=== PATIENT | female | born 1955 | race Caucasian/White ===

== ENCOUNTER 2016-12-27 16:21 | Emergency (ER) | payer OTHER ==
[2016-12-27 16:28] VITALS: BP 123/63
--- NOTE | 2016-12-27 19:37 | ED ---
Bite Injury/Animal - HPI Summary HPI Summary: Patient presents to the ED with CC of cat bite to the right toe. She states her cat bites the toe often (at least once a month), and often she will get infections. She has since kept Augmentin on hand at her home for when she gets bitten. However, today the claw penetrated lateral to the bit toe nail and now presenting with pain worse than she usually experiences. She is concerned over an infection. She took Tramadol for pain relief. She also irrigated the wound at home, as she normally does when she is bitten. Denies numbness or tingling. Endorses good blood flow and denies temperature or color change. Cat is with all shots. Denies fever, chills. - History of Current Complaint Chief Complaint: EDAnimalBite Stated Complaint: CAT BITE ON TOE Time Seen by Provider: 12/27/16 17:15 Hx Obtained From: Patient Hx Last Menstrual Period: . Onset of Injury: Happened hours ago - this am Type of Bite: Animal Hx of Bite: Unprovoked Has Animal Been Immunized?: Yes Severity Initially: Mild Severity Currently: Moderate Pain Intensity: 7 Pain Scale Used: 0-10 Numeric Character: Puncture Associated Signs And Symptoms: Positive: Erythema - slight erythema around the tip of the toe - Risk Factors Infection/Sepsis Risk Factors: Negative - Allergies/Home Medications Allergies/Adverse Reactions: Allergies Allergy/AdvReac Type Severity Reaction Status Date / Time Prochlorperazine Allergy Unknown See Comment Verified 12/27/16 16:24 [From Compazine] PMH/Surg Hx/FS Hx/Imm Hx Previously Healthy: Yes Endocrine/Hematology History: Reports: Hx Thyroid Disease Denies: Hx Anticoagulant Therapy, Hx Diabetes Cardiovascular History: Denies: Hx Congestive Heart Failure, Hx Deep Vein Thrombosis, Hx Hypertension , Hx Myocardial Infarction, Hx Pacemaker/ICD Respiratory History: Denies: Hx Asthma, Hx Chronic Obstructive Pulmonary Disease (COPD), Hx Lung Cancer, Hx Pneumonia, Hx Pulmonary Embolism GI History: Denies: Hx Gall Bladder Disease, Hx Gastrointestinal Bleed, Hx Ulcer, Hx Urosepsis History: Denies: Hx Dialysis, Hx Kidney Stones, Hx Renal Disease Sensory History: Denies: Hx Contacts or Glasses - CONTACTS, Hx Hearing Aid Opthamlomology History: Denies: Hx Contacts or Glasses - CONTACTS Neurological History: Reports: Hx Migraine - OCC Denies: Hx Dementia, Hx Seizures, Hx Transient Ischemic Attacks (TIA) Psychiatric History: Reports: Hx Depression Denies: Hx Panic Disorder - Surgical History Surgery Procedure, Year, and Place: 2 knee surgeries - meniscectomies 2010, 2011 [place]. hysterectomy 2008; 09/06/15 REPAIR [facility] Hx Anesthesia Reactions: No Infectious Disease History: No Infectious Disease History: Reports: Hx Shingles Denies: Hx Clostridium Difficile, Hx Hepatitis, Hx Human Immunodeficiency Virus (HIV), Hx of Known/Suspected MRSA, Hx Tuberculosis, Hx Known/Suspected VRE , Hx Known/Suspected VRSA, History Other Infectious Disease, Traveled Outside the [place] in Last 30 Days - Family History Known Family History: Positive: Cardiac Disease, Diabetes Negative: Hypertension - Social History Occupation: Employed Full-time Lives: With Family Alcohol Use: Occasionally Hx Substance Use: No Substance Use Type: Reports: None Hx Tobacco Use: No Smoking Status (MU): Never Smoked Tobacco Review of Systems Constitutional: Negative Eyes: Negative Cardiovascular: Negative Respiratory: Negative Musculoskeletal: Negative Positive: Other - small puncture wound to lateral border of right toe Neurological: Negative Psychological: Normal All Other Systems Reviewed And Are Negative: Yes Physical Exam Triage Information Reviewed: Yes Vital Signs On Initial Exam: Initial Vitals Temp Pulse Resp BP Pulse Ox 98.2 F 87 16 123/63 98 12/27/16 16:24 12/27/16 16:24 12/27/16 16:24 12/27/16 16:24 12/27/16 16:24 Vital Signs Reviewed: Yes Appearance: Positive: Well-Appearing, No Pain Distress Skin: Positive: Warm, Skin Color Reflects Adequate Perfusion, Other - small puncture wound to the lateral side of the right big toe Head/Face: Positive: Normal Head/Face Inspection Eyes: Positive: Normal, EOMI ENT: Positive: Hearing grossly normal Neck: Positive: Nontender, No Lymphadenopathy Respiratory/Lung Sounds: Positive: Clear to Auscultation Cardiovascular: Positive: Normal Musculoskeletal: Positive: Normal, Strength/ROM Intact Neurological: Positive: Normal Psychiatric: Positive: Normal Diagnostics - Vital Signs Vital Signs Temp Pulse Resp BP Pulse Ox 12/27/16 16:24 98.2 F 87 16 123/63 98 - Laboratory Lab Statement: Any lab studies that have been ordered have been reviewed, and results considered in the medical decision making process. Bite Injury Course/Dx - Course Course Of Treatment: Provider discussed risks for cat bite infections. No numbnes or tingling. Good blood flow. Slight erythema over lateral side of great toe. endorsed pain. Took Augmentin at home - 1 dose. no fever. no warmth around toe. Patient placed on Augmentin. Continue with abx for 10 days. Return precautions given. - Diagnoses Differential Diagnosis/HQI/PQRI: Positive: Cellulitis, Crush Injury, Laceration , Puncture Provider Diagnosis: Cat bite of foot Discharge - Discharge Plan Condition: Stable Disposition: HOME Prescriptions: Amoxicillin/Clavulanate TAB* [Augmentin TAB 875*] 875 mg PO BID #20 tab Referrals: Mary Thapa MD [Primary Care Provider] - Additional Instructions: Cat Bite: Augmentin for 10 days May take pain medication at home as needed for discomfort. Encouraged Ibuprofen 600mg three times daily with meals for pain. Return precautions and return to ED if symptoms worsen or fail to improve, notice worsening swelling, warmth or redness around the joint, develop fever, or pain is uncontrolled with OTC medications. Notes to patient from your provider: Protect the area. Rest the involved area, but not too long. You may need to be off your injury for some time to allow for healing, however excessive immobilization of joints can lead to stiffness and delay healing time. Early mobilization is encouraged if it is pain-free. Ice. Not directly on the skin. Cover with a towel. Apply ice no more than 30 minutes at a time
== END 2016-12-27 18:20 | disposition home or self-care (01) ==
LOC: ED 16:21
DX: S91.151A Open bite of right great toe without damage to nail, initial encounter (principal); W55.01XA Bitten by cat, initial encounter; Y93.9 Activity, unspecified; Y92.9 Unspecified place or not applicable; Y99.9 Unspecified external cause status
CPT/HCPCS: 99282

== ENCOUNTER 2018-09-26 15:02 | Emergency (ER) | payer OTHER ==
[2018-09-26 15:21] VITALS: BP 125/75
--- NOTE | 2018-09-26 15:38 | UC ---
Complaint Female HPI - HPI Summary HPI Summary: Has had burning urination and frequency for past 2 weeks medicated herself with cipro from home for 4-5 days, started to feel better so stopped med. started augmentin 2 days later for same symps and then added cirpo again. starting to feel a bit better but not totally. Also used one day monistat - although denies itch or vaginal symps - History Of Current Complaint Chief Complaint: UCGU Stated Complaint: URINARY COMPLAINT Time Seen by Provider: 09/26/18 15:21 Hx Obtained From: Patient Hx Last Menstrual Period: 2008/. ?: No Onset/Duration: Gradual Onset Timing: Constant Severity Initially: Mild Severity Currently: Mild Pain Intensity: 3 Character: Burning Aggravating Factor(s): Urination Associated Signs And Symptoms: Negative: Fever, Back Pain, Vaginal Bleeding/ Discharge, Nausea, Vomiting(# Of Episodes =) - Allergies/Home Medications Allergies/Adverse Reactions: Allergies Allergy/AdvReac Type Severity Reaction Status Date / Time prochlorperazine Allergy Intermediate Unknown Verified 09/26/18 15:22 [From Compazine] Reaction Details PMH/Surg Hx/FS Hx/Imm Hx Previously Healthy: Yes Endocrine History: Hypothyroidism Psychological History: Depression Other History Of: Negative For: HIV, Hepatitis B, Hepatitis C, Anticoagulant Therapy - Surgical History Surgical History: Yes Surgery Procedure, Year, and Place: 2 knee surgeries - meniscectomies 2010, 2011 [place]. hysterectomy 2008; 09/06/15 REPAIR [facility] - Family History Known Family History: Positive: Cardiac Disease, Diabetes Negative: Hypertension - Social History Occupation: Employed Full-time Lives: Alone Alcohol Use: Weekly Substance Use Type: None Smoking Status (MU): Never Smoked Tobacco - Immunization History Most Recent Influenza Vaccination: season Most Recent Tetanus Shot: 2010 Review of Systems Constitutional: Negative Respiratory: Negative Cardiovascular: Negative Gastrointestinal: Negative Genitourinary: Dysuria, Frequency Psychological: Negative Is Patient Immunocompromised?: No All Other Systems Reviewed And Are Negative: Yes Physical Exam Triage Information Reviewed: Yes Appearance: Well-Appearing, No Pain Distress, Well-Nourished Vital Signs: Initial Vital Signs Temp 97.8 F 09/26/18 15:18 Pulse 75 09/26/18 15:18 Resp 18 09/26/18 15:18 BP 125/75 09/26/18 15:18 Pulse Ox 99 09/26/18 15:18 Vital Signs Reviewed: Yes Respiratory Exam: Normal Cardiovascular Exam: Normal Abdominal Exam: Normal Neurological Exam: Normal Psychological Exam: Normal Skin Exam: Normal Complaint Female Dx - Differential Dx/Diagnosis Differential Diagnosis/HQI/PQRI: Sexually Transmitted Disease, Urinary Tract Infection Provider Diagnoses: Dysuria Discharge - Sign-Out/Discharge Documenting (check all that apply): Patient Departure All imaging exams completed and their final reports reviewed: No Studies - Discharge Plan Condition: Stable Disposition: HOME Prescriptions: Phenazopyridine 200 mg (NF) [Pyridium 200 MG tab *] 200 mg PO TID #6 tab Patient Education Materials: Dysuria (ED) Referrals: Mary hTapa MD [Primary Care Provider] - 3 Days (if no better) Additional Instructions: Drink plenty of fluids use pyridium for 2 days only Report to ER if you experience fever or chills or abdominal or back pain follow-up with urine culture results - Billing Disposition and Condition Condition: STABLE Disposition: Home
[2018-09-26] MEDS ORDERED: Phenazopyridine TAB* 100 MG PO ONE (15:54)
--- NOTE | 2018-09-28 16:57 | UC ---
- Progress Note Progress Note: urine culture - no growth no change norbert 09/28/18 Discharge - Sign-Out/Discharge Documenting (check all that apply): Post-Discharge Follow Up All imaging exams completed and their final reports reviewed: No Studies - Discharge Plan Condition: Stable Disposition: HOME Prescriptions: Phenazopyridine 200 mg (NF) [Pyridium 200 MG tab *] 200 mg PO TID #6 tab Patient Education Materials: Dysuria (ED) Referrals: Mary Thapa MD [Primary Care Provider] - 3 Days (if no better) Additional Instructions: Drink plenty of fluids use pyridium for 2 days only Report to ER if you experience fever or chills or abdominal or back pain follow-up with urine culture results - Billing Disposition and Condition Condition: STABLE Disposition: Home
== END 2018-09-26 16:20 | disposition home or self-care (01) ==
LOC: UCEAST 15:02
DX: R30.0 Dysuria (principal); R35.0 Frequency of micturition; Z88.8 Allergy status to other drugs, medicaments and biological substances
CPT/HCPCS: 81003; 87086; 99212; A9270-GY; G0463